=== PATIENT | female | born 1945 | race Two or more races ===

== ENCOUNTER → 2020-05-29 | Outpatient (CLI) | payer OTHER ==
[~2020-05-29] MED LIST: ASPI81CH43
[2020-05-29 12:40] LABS: Basophils # (auto) 0.1 10 ^3/uL (0-0.2); Basophils % (auto) 1.1 % (0.0-2.0); Eosinophils # (auto) 0.2 10 ^3/uL (0-0.8); Eosinophils % (auto) 3.3 % (0.0-7.0); Hematocrit 38.4 % (36.0-46.0); Hemoglobin 13.2 g/dL (12.2-16.2); Lymphocytes % (auto) 33.6 % (10.0-50.0); Mean Corpuscular Hemoglobin 30.7 pg (28.0-32.0); Mean Corpuscular Hgb Conc. 34.3 g/dL (32.0-36.0); Mean Corpuscular Volume 89.6 fL (80.0-100.0); Monocytes # (auto) 0.6 10 ^3/uL (0-1.3); Monocytes % (auto) 10.2 % (0.0-12.0); Neutrophils # (auto) 3.1 10 ^3/uL (1.6-8.6); Neutrophils % (auto) 51.8 % (37.0-80.0); Platelet Count (auto) 258 10^3/uL (140-450); Red Blood Cells 4.29 10^6/uL (4.0-5.20); Red Cell Distribution Width 14.1 % (11.8-14.3); White Blood Cell 5.9 10^3/uL (4.4-10.8)
[2020-05-29 13:00] LABS: Urine Blood Negative /uL (Negative); Urine Specific Gravity 1.004 (1.001-1.035)
[2020-05-29 13:17] LABS: Albumin 3.7 g/dL (3.4-5.0); Potassium 4.1 mmol/L (3.5-5.1)
[2020-05-29 13:25] LABS: BUN/Creatinine Ratio 19.8; Bilirubin, Total 0.6 mg/dL (0.2-1.0); Calcium 9.3 mg/dL (8.5-10.1); Total Protein 8.2 g/dL (6.4-8.2)
== END | disposition home or self-care (01) ==
LOC: LAB 12:26
PROVIDERS: ATTEND Student in an Organized Health Care Education/Training Program
DX: I10 Essential (primary) hypertension (principal); R73.9 Hyperglycemia, unspecified
CPT/HCPCS: 36415; 80053; 80061; 81003; 83036; 84443; 85025

== ENCOUNTER → 2020-11-27 | Outpatient (CLI) | payer OTHER | END | disposition home or self-care (01) | LOC: LAB 10:43 | PROVIDERS: ATTEND Obstetrics & Gynecology | DX: N83.299 Other ovarian cyst, unspecified side (principal) | CPT/HCPCS: 86304 ==

== ENCOUNTER 2021-01-23 13:39 | Day surgery (SDC) | payer OTHER ==
[2021-01-18 12:27] LABS: Basophils # (auto) 0.1 10 ^3/uL (0-0.2); Basophils % (auto) 0.6 % (0.0-2.0); Eosinophils # (auto) 0.1 10 ^3/uL (0-0.8); Eosinophils % (auto) 1.3 % (0.0-7.0); Hematocrit 43.4 % (36.0-46.0); Hemoglobin 14.5 g/dL (12.2-16.2); Lymphocytes # (auto) 1.7 10 ^3/uL (0.4-5.4); Lymphocytes % (auto) 19.8 % (10.0-50.0); Mean Corpuscular Hemoglobin 29.6 pg (28.0-32.0); Mean Corpuscular Hgb Conc. 33.4 g/dL (32.0-36.0); Mean Corpuscular Volume 88.7 fL (80.0-100.0); Monocytes # (auto) 0.7 10 ^3/uL (0-1.3); Monocytes % (auto) 7.6 % (0.0-12.0); Neutrophils # (auto) 6.2 10 ^3/uL (1.6-8.6); Neutrophils % (auto) 70.7 % (37.0-80.0); Nucleated Red Blood Cells % 0.1 %; White Blood Cell 8.7 10^3/uL (4.4-10.8)
[2021-01-18 13:27] LABS: Albumin 3.6 g/dL (3.4-5.0); Calcium 9.7 mg/dL (8.5-10.1); Potassium 4.2 mmol/L (3.5-5.1)
[2021-01-18 13:30] LABS: Bilirubin, Total 0.4 mg/dL (0.2-1.0); Total Protein 8.5 g/dL (6.4-8.2)
[~2021-01-23] VITALS: Ht 157.5 cm; Wt 72.1 kg
[~2021-01-23 13:39] MED LIST changes: -ASPI81CH43; +LOSA-69 PO
[2021-01-23] MEDS ORDERED: diphenhdrAMINE HCL 50 MG/1 ML VL ONE (14:19)
[2021-01-23] MEDS ORDERED: SODIUM CHLORIDE LOCK 10 ML ONE (14:19)
[2021-01-23] MEDS: fentaNYL CITRATE 100 MCG/2 ML VL ONE ×2 (14:24→14:29)
[2021-01-23] MEDS: MIDAZOLAM HCL 5 MG/ML-1ML VIAL ONE ×2 (14:24→14:29)
[2021-01-23 15:28] VITALS: BP 128/70
== END 2021-01-23 15:50 | disposition home or self-care (01) ==
LOC: GI 13:39
PROVIDERS: ATTEND Internal Medicine Gastroenterology
DX: Z12.11 Encounter for screening for malignant neoplasm of colon (principal); K63.5 Polyp of colon; K64.8 Other hemorrhoids; K63.89 Other specified diseases of intestine; I10 Essential (primary) hypertension; Z98.890 Other specified postprocedural states; Z79.899 Other long term (current) drug therapy
CPT/HCPCS: 36415; 45380; 80053; 85025; 88305; J1200; J2250; J3010; J7030; 99152

== ENCOUNTER → 2021-02-06 | Outpatient (CLI) | payer OTHER | END | disposition home or self-care (01) | LOC: LAB 11:52 | PROVIDERS: ATTEND Obstetrics & Gynecology | DX: N83.201 Unspecified ovarian cyst, right side (principal); R10.2 Pelvic and perineal pain | CPT/HCPCS: 86304 ==

== ENCOUNTER → 2021-08-14 | Outpatient (CLI) | payer OTHER ==
[2021-08-14 12:05] LABS: Basophils # (auto) 0.1 10 ^3/uL (0-0.2); Basophils % (auto) 0.8 % (0.0-2.0); Eosinophils # (auto) 0.2 10 ^3/uL (0-0.8); Eosinophils % (auto) 3.5 % (0.0-7.0); Hematocrit 39.8 % (36.0-46.0); Hemoglobin 13.4 g/dL (12.2-16.2); Lymphocytes # (auto) 1.9 10 ^3/uL (0.4-5.4); Lymphocytes % (auto) 30.4 % (10.0-50.0); Mean Corpuscular Hemoglobin 29.6 pg (28.0-32.0); Mean Corpuscular Hgb Conc. 33.8 g/dL (32.0-36.0); Mean Corpuscular Volume 87.8 fL (80.0-100.0); Monocytes # (auto) 0.5 10 ^3/uL (0-1.3); Monocytes % (auto) 8.4 % (0.0-12.0); Neutrophils # (auto) 3.6 10 ^3/uL (1.6-8.6); Neutrophils % (auto) 56.9 % (37.0-80.0); Nucleated Red Blood Cells % 0.1 %; Red Blood Cells 4.54 10^6/uL (4.0-5.20); Red Cell Distribution Width 14.1 % (11.8-14.3); White Blood Cell 6.3 10^3/uL (4.4-10.8)
[2021-08-14 12:09] LABS: Urine Bacteria NONE SEEN /hpf (None Seen); Urine Blood Negative /uL (Negative); Urine Specific Gravity 1.006 (1.001-1.035); Urine WBC 1 /hpf (0 - 5)
[2021-08-14 17:28] LABS: Potassium 4.1 mmol/L (3.5-5.1)
[2021-08-14 17:29] LABS: BUN/Creatinine Ratio 25.9; Bilirubin, Total 0.5 mg/dL (0.2-1.0); Calcium 9.3 mg/dL (8.5-10.1); Total Protein 7.9 g/dL (6.4-8.2)
[2021-08-14 17:30] LABS: Albumin 3.6 g/dL (3.4-5.0)
== END | disposition home or self-care (01) ==
LOC: LAB 11:38
PROVIDERS: ATTEND Student in an Organized Health Care Education/Training Program
DX: I10 Essential (primary) hypertension (principal); R73.9 Hyperglycemia, unspecified
CPT/HCPCS: 36415; 80053; 80061; 81001; 83036; 85025

== ENCOUNTER → 2023-02-06 | Outpatient (CLI) | payer OTHER ==
[~2023-02-06] MED LIST changes: -LOSA-69 PO; +LOSA50TA46 PO
[2023-02-06 10:21] LABS: Basophils # (auto) 0.1 10 ^3/uL (0-0.2); Basophils % (auto) 1.1 % (0.0-2.0); Eosinophils # (auto) 0.4 10 ^3/uL (0-0.8); Eosinophils % (auto) 4.4 % (0.0-7.0); Hemoglobin 13.1 g/dL (12.2-16.2); Lymphocytes # (auto) 2.2 10 ^3/uL (0.4-5.4); Lymphocytes % (auto) 25.4 % (10.0-50.0); Mean Corpuscular Hemoglobin 29.9 pg (28.0-32.0); Mean Corpuscular Hgb Conc. 33.5 g/dL (32.0-36.0); Monocytes # (auto) 0.7 10 ^3/uL (0-1.3); Monocytes % (auto) 8.6 % (0.0-12.0); Neutrophils # (auto) 5.2 10 ^3/uL (1.6-8.6); Neutrophils % (auto) 60.5 % (37.0-80.0); Nucleated Red Blood Cells % 0.1 %; Red Blood Cells 4.38 10^6/uL (4.0-5.20); Red Cell Distribution Width 14.4 % (11.8-14.3); White Blood Cell 8.6 10^3/uL (4.4-10.8)
[2023-02-06 11:25] LABS: Alanine Aminotransferase 20 U/L (7-40); Albumin 4.4 g/dL (3.2-4.8); Alkaline Phosphatase 106 U/L (46-116); Anion Gap 8 (5-15); Aspartate Aminotransferase 21 U/L (13-40); BUN/Creatinine Ratio 26.8 (10.0-20.0); Bilirubin, Total 0.7 mg/dL (0.2-1.0); Blood Urea Nitrogen 26 mg/dL (9-23); Calcium 9.6 mg/dL (8.5-10.1); Carbon Dioxide 25 mmol/L (20-30); Chloride 103 mmol/L (98-107); Cholesterol 165 mg/dL (< 200); Glucose 101 mg/dL (74-106); HDL Cholesterol 45 mg/dL (40-59); LDL Cholesterol 102 mg/dL (< 100); Potassium 4.1 mmol/L (3.5-5.1); Sodium 136 mmol/L (136-145); Total Protein 7.9 g/dL (5.7-8.2); Triglycerides 144 mg/dL (< 150)
== END | disposition home or self-care (01) ==
LOC: LAB 10:10
PROVIDERS: ATTEND Student in an Organized Health Care Education/Training Program
DX: I10 Essential (primary) hypertension (principal)
CPT/HCPCS: 36415; 80053; 80061; 82306; 83036; 85025

== ENCOUNTER → 2023-11-24 | Outpatient (CLI) | payer OTHER ==
[~2023-11-24] MED LIST changes: +LOSA-534 PO; -LOSA50TA46 PO
[2023-11-24 11:38] LABS: Urine Bacteria None Seen /hpf (None Seen)
[2023-11-24 11:49] LABS: Basophils # (auto) 0.1 10 ^3/uL (0-0.2); Basophils % (auto) 0.8 % (0.0-2.0); Eosinophils # (auto) 0.2 10 ^3/uL (0-0.8); Eosinophils % (auto) 2.6 % (0.0-7.0); Hematocrit 37.2 % (36.0-46.0); Hemoglobin 12.7 g/dL (12.2-16.2); Lymphocytes # (auto) 1.9 10 ^3/uL (0.4-5.4); Lymphocytes % (auto) 23.8 % (10.0-50.0); Mean Corpuscular Hemoglobin 30.2 pg (28.0-32.0); Mean Corpuscular Hgb Conc. 34.1 g/dL (32.0-36.0); Mean Corpuscular Volume 88.7 fL (80.0-100.0); Monocytes # (auto) 0.7 10 ^3/uL (0-1.3); Monocytes % (auto) 8.4 % (0.0-12.0); Neutrophils # (auto) 5.2 10 ^3/uL (1.6-8.6); Neutrophils % (auto) 64.4 % (37.0-80.0); Nucleated Red Blood Cells % 0.1 %; Red Blood Cells 4.19 10^6/uL (4.0-5.20); Red Cell Distribution Width 14.4 % (11.8-14.3); White Blood Cell 8.1 10^3/uL (4.4-10.8)
[2023-11-24 11:56] LABS: Urine Blood Negative /uL (Negative); Urine Clarity Clear (Clear); Urine Color Light-Yellow (Yellow); Urine Protein, UAD Negative (Negative); Urine Urobilinogen Normal (Negative); Urine WBC 1 /hpf (0 - 5); Urine pH 6.5 (5.0-9.0)
[2023-11-24 12:19] LABS: LDL Cholesterol 83 mg/dL (< 100); Triglycerides 163 mg/dL (< 150)
[2023-11-24 12:20] LABS: HDL Cholesterol 39 mg/dL (40-59)
[2023-11-24 12:21] LABS: Cholesterol 150 mg/dL (< 200)
== END | disposition home or self-care (01) ==
LOC: LAB 11:29
PROVIDERS: ATTEND Student in an Organized Health Care Education/Training Program
DX: I10 Essential (primary) hypertension (principal); E78.5 Hyperlipidemia, unspecified; E55.9 Vitamin D deficiency, unspecified
CPT/HCPCS: 36415; 80061; 81001; 82306; 84443; 85025

== ENCOUNTER → 2024-05-30 | Outpatient (CLI) | payer OTHER ==
[2024-05-30 12:37] LABS: Urine Bacteria None Seen /hpf (None Seen)
[2024-05-30 12:45] LABS: Basophils # (auto) 0.1 10 ^3/uL (0-0.2); Basophils % (auto) 0.8 % (0.0-2.0); Eosinophils # (auto) 0.2 10 ^3/uL (0-0.8); Eosinophils % (auto) 3.5 % (0.0-7.0); Hemoglobin 13.8 g/dL (12.2-16.2); Lymphocytes # (auto) 1.8 10 ^3/uL (0.4-5.4); Lymphocytes % (auto) 27.5 % (10.0-50.0); Mean Corpuscular Hemoglobin 29.4 pg (28.0-32.0); Mean Corpuscular Hgb Conc. 32.8 g/dL (32.0-36.0); Mean Corpuscular Volume 89.7 fL (80.0-100.0); Monocytes # (auto) 0.6 10 ^3/uL (0-1.3); Monocytes % (auto) 8.9 % (0.0-12.0); Neutrophils # (auto) 3.8 10 ^3/uL (1.6-8.6); Neutrophils % (auto) 59.3 % (37.0-80.0); Platelet Count (auto) 256 10^3/uL (140-450); Red Blood Cells 4.68 10^6/uL (4.0-5.20); Red Cell Distribution Width 14.5 % (11.8-14.3); White Blood Cell 6.4 10^3/uL (4.4-10.8)
[2024-05-30 13:37] LABS: Urine Blood TRACE /uL (Negative); Urine Clarity Clear (Clear); Urine Protein, UAD Negative (Negative); Urine Specific Gravity 1.006 (1.001-1.035); Urine Squamous Epithelial Cell FEW /hpf (<5); Urine Urobilinogen Normal (Negative); Urine WBC 1 /HPF (0-5); Urine pH 6.5 (5.0-9.0)
[2024-05-30 13:38] LABS: Urine Color Light-Yellow (Yellow)
[2024-05-30 14:09] LABS: Alanine Aminotransferase 20 U/L (7-40); Albumin 4.7 g/dL (3.2-4.8); Anion Gap 7 (5-15); Aspartate Aminotransferase 23 U/L (13-40); BUN/Creatinine Ratio 21.3 (10.0-20.0); Blood Urea Nitrogen 19 mg/dL (9-23); Carbon Dioxide 28 mmol/L (20-31); Chloride 104 mmol/L (98-107); Glucose 103 mg/dL (74-106); LDL Cholesterol 86 mg/dL (< 100); Potassium 4.4 mmol/L (3.5-5.1); Sodium 139 mmol/L (136-145)
[2024-05-30 14:10] LABS: Bilirubin, Total 0.5 mg/dL (0.2-1.0); Cholesterol 157 mg/dL (< 200); HDL Cholesterol 48 mg/dL (40-59); Total Protein 7.8 g/dL (5.7-8.2)
[2024-05-30 14:12] LABS: Alkaline Phosphatase 130 U/L (46-116); Calcium 10.5 mg/dL (8.7-10.4); Triglycerides 226 mg/dL (< 150)
== END | disposition home or self-care (01) ==
LOC: LAB 12:17
PROVIDERS: ATTEND Student in an Organized Health Care Education/Training Program
DX: I10 Essential (primary) hypertension (principal); E55.9 Vitamin D deficiency, unspecified; R73.9 Hyperglycemia, unspecified
CPT/HCPCS: 36415; 80053; 80061; 81001; 82306; 83036; 84443; 85025

== ENCOUNTER → 2024-08-03 | Outpatient (CLI) | payer OTHER | END | disposition home or self-care (01) | LOC: LAB 11:40 | PROVIDERS: ATTEND Registered Nurse | DX: N39.0 Urinary tract infection, site not specified (principal); R31.9 Hematuria, unspecified | CPT/HCPCS: 87086 ==

== ENCOUNTER 2024-08-14 13:22 | Inpatient (IN) | payer OTHER ==
[~2024-08-14] VITALS: Ht 157.5 cm; Wt 69.1 kg
[~2024-08-14 13:22] MED LIST changes: +EZET-10 PO; +ROSU5TAB24 PO; +ZOFR4T SL
--- NOTE | 2024-08-14 14:05 | ED.PDOC ---
GI ASSESSMENT HPI Comments 78 y.o female with PMHx of HTN, presents to the ED for a chief complaint of lower abdominal pain associated with nausea, vomiting, dysuria and chills that started 10 days ago. Patient reports pain is sharp, constant, non radiating and rating a 8/10 on the pain scale. Patient reports being seen at an ED when pain first presented, states she was diagnosed with gastroenteritis and given pain medication. Patient finished pain medication 4 days ago, mentions they helped with pain but since running out, pain has came back. She denies any diarrhea, fever, bloody stool, back pain. Chief Complaint: Abdominal Pain Time Seen by MD: 13:48 Primary Care Provider: OUT OF AREA Reviewed Notes: Nurses Notes, Medications, Allergies Allergies: Coded Allergies: Pork Allergy (Unverified Allergy, Mild, rash, 01/18/21) Home Meds Reported Medications Losartan Potassium (Losartan Potassium) 50 Mg Tab, 50 MG PO, TAB 01/18/21 Information Source: Patient Mode of Arrival: Ambulatory Timing: Days (10) Duration: Since onset Quality: Sharp Vomitus: Hard Stool: Normal Severity: Moderate Recent: None Recent Hx of: Other Pain Location: Suprapubic Modifying Factors: Nothing Associated sign and symptoms: Nausea, Vomiting, Abdominal Pain Past Medical History PAST MEDICAL HISTORY: GERD, HTN 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 History Family History Family History: Reviewed,noncontributory to illness Social History Smoker: Non-Smoker Alcohol: Denies ETOH Use Drugs: Denies Drug Use Lives In: Home Constitutional: reports: chills; denies: diaphoresis, fatigue, fever, malaise, sweats, weakness, others EENTM: denies: blurred vision, double vision, ear bleeding, ear discharge, ear drainage, ear pain, ear ringing, eye pain, eye redness, hearing loss, mouth pain, mouth swelling, nasal discharge, nose bleeding, nose congestion, nose pain, photophobia, tearing, throat pain, throat swelling, voice changes, others Respiratory: denies: cough, hemoptysis, orthopnea, SOB at rest, shortness of breath, SOB with excertion, stridor, wheezing, others Cardiovascular: denies: chest pain, dizzy spells, diaphoresis, Dyspnea on exertion, edema, irregular heart beat, left arm pain, lightheadedness, palpitations, PND, syncope, others Gastrointestinal: reports: abdominal pain, nausea, vomiting; denies: abdomen distended, blood streaked bowels, constipated, diarrhea, dysphagia, difficulty swallowing, hematemesis, melena, poor appetite, poor fluid intake, rectal bleeding, rectal pain, others Genitourinary: denies: abnormal vagina bleeding, burning, dyspareunia, dysuria, flank pain, frequency, hematuria, incontinence, pain, , vagina discharge, urgency, others Neurological: denies: dizziness, fainting, headache, left sided numbness, left sided weakness, numbness, paresthesia, pre-existing deficit, right sided numbness, right sided weakness, seizure, speech problems, tingling, tremors, weakness, others Musculoskeletal: denies: back pain, gout, joint pain, joint swelling, muscle pain, muscle stiffness, neck pain, others Integumetry: denies: bruises, change in color, change in hair/nails, dryness, laceration, lesions, lumps, rash, wounds, others Allergic/Immunocompromised: denies: Difficulty Healing, Frequent Infections, Hives, Itching, others Hematologic/Lymphatic: denies: anemia, blood clots, easy bleeding, easy bruising, swollen glands, others Endocrine: denies: excessive hunger, excessive sweating, excessive thirst, excessive urination, flushing, intolerance to cold, intolerance to heat, unexplained weight gain, unexplained weight loss, others Psychiatric: denies: anxiety, bipolar disorder, depression, hopeless, panic disorder, schizophrenia, sleepless, suicidal, others All Other Systems: Reviewed and Negative Physical Exam General Appearance: Mild Distress HEENT: Normal ENT Inspection, Pharynx Normal, TMs Normal Neck: Full Range of Motion, Non-Tender, Normal, Normal Inspection Respiratory: Chest Non-Tender, Lungs Clear, No Accessory Muscle Use, No Respiratory Distress, Normal Breath Sounds Cardiovascular: No Edema, No JVD, No Murmur, No Gallop, Normal Peripheral Pulses, Regular Rate/Rhythm Breast Exam: Deferred Gastrointestinal: No Organomegaly, No Pulsatile Mass, Normal Bowel Sounds, Soft, Suprapubic, Tenderness Genitalia: Deferred Pelvic: Deferred Rectal: Deferred Extremities: No calf tenderness, Normal capillary refill, Normal inspection, Normal range of motion, Non-tender, No pedal edema Musculoskeletal : Apperance: Normal Neurologic: Alert, 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 Was a procedure done?: No GI differential Dx Differential Diagnosis: Esophagitis, Gastroenteritis, Inflammatory BD, Diabetes/ DKA, Electrolyte Imbalance, Food Poisoning, Viral X-Ray, Labs, Meds, VS Vital Signs Date Time Temp Pulse Resp B/P (MAP) Pulse Ox O2 Delivery O2 Flow Rate FiO2 08/14/24 14:52 65 17 114/60 08/14/24 14:42 Room Air* 0 21 08/14/24 14:28 100.1 86 17 124/57 (79) 95 100.1 08/14/24 14:22 86 17 124/57 08/14/24 13:34 100.7 91 15 165/59 (94) 96 100.7 Lab Test 08/14/24 14:00 08/14/24 13:56 Range/Units White Blood Count 13.9 H 4.4-10.8 10^3/uL Red Blood Count 4.34 4.0-5.20 10^6/uL Hemoglobin 12.7 12.2-16.2 g/dL Hematocrit 37.8 36.0-46.0 % Mean Corpuscular Volume 87.2 80.0-100.0 fL Mean Corpuscular Hemoglobin 29.4 28.0-32.0 pg Mean Corpuscular Hemoglobin Concent 33.7 32.0-36.0 g/dL Red Cell Distribution Width 14.1 11.8-14.3 % Platelet Count 276 140-450 10^3/uL Mean Platelet Volume 7.3 6.9-10.8 fL Neutrophils (%) (Auto) 84.8 H 37.0-80.0 % Lymphocytes (%) (Auto) 4.4 L 10.0-50.0 % Monocytes (%) (Auto) 10.4 0.0-12.0 % Eosinophils (%) (Auto) 0.1 0.0-7.0 % Basophils (%) (Auto) 0.3 0.0-2.0 % Neutrophils # (Auto) 11.8 H 1.6-8.6 10 ^3/uL Lymphocytes # (Auto) 0.6 0.4-5.4 10 ^3/uL Monocytes # (Auto) 1.5 H 0-1.3 10 ^3/uL Eosinophils # (Auto) 0 0-0.8 10 ^3/uL Basophils # (Auto) 0 0-0.2 10 ^3/uL Nucleated Red Blood Cells 0.0 % Sodium Level 133 L 136-145 mmol/L Potassium Level 4.2 3.5-5.1 mmol/L Chloride Level 100 98-107 mmol/L Carbon Dioxide Level 24 20-31 mmol/L Anion Gap 9 5-15 Blood Urea Nitrogen 21 9-23 mg/dL Creatinine 1.15 H 0.550-1.02 mg/dL Glomerular Filtration Rate Calc 49 >90 mL/min BUN/Creatinine Ratio 18.3 10.0-20.0 Serum Glucose 166 H 74-106 mg/dL Calcium Level 9.6 8.7-10.4 mg/dL Total Bilirubin 0.8 0.2-1.0 mg/dL Aspartate Amino Transferase (AST) 21 13-40 U/L Alanine Aminotransferase (ALT) 21 7-40 U/L Alkaline Phosphatase 114 46-116 U/L Total Protein 7.8 5.7-8.2 g/dL Albumin 4.3 3.2-4.8 g/dL Urine Color Light-yellow Yellow Urine Clarity Turbid H Clear Urine pH 8.0 5.0-9.0 Urine Specific [place] 1.012 1.001-1.035 Urine Protein 1+ H Negative Urine Ketones Negative Negative Urine Blood Trace H Negative /uL Urine Nitrite Negative Negative Urine Bilirubin Negative Negative Urine Urobilinogen Normal Negative mg/dL Urine Leukocyte Esterase 3+ Negative /uL Urine RBC 13 0 - 4 /hpf Urine Microscopic WBC 113 H 0-5 /HPF Urine Squamous Epithelial Cells Few <5 /hpf Urine Transitional Epithelial Cells Few <2 /hpf Urine Bacteria Few H None Seen /hpf Urine Yeast (Budding) Few None Seen /hpf Urine Glucose Normal Normal mg/dL Current Medications Medications (Trade) Dose Ordered Sig/Tony Route Start Time Stop Time Status Last Admin Ondansetron HCl (Zofran) 4 mg ONCE ONCE IV 08/14/24 14:00 08/14/24 14:01 DC 08/14/24 14:21 Morphine Sulfate 4 mg ONCE ONCE IV 08/14/24 14:00 08/14/24 14:01 DC 08/14/24 14:22 Sodium Chloride 500 ml @ 500 mls/hr Q1H ONCE IVB 08/14/24 14:00 08/14/24 14:59 DC 08/14/24 14:31 Levofloxacin/ Dextrose 100 ml @ 100 mls/hr ONCE ONCE IV 08/14/24 15:45 08/14/24 16:44 08/14/24 16:04 CLINICAL INFORMATION: 78 years old, Female; pain. TECHNIQUE: Axial CT images of the abdomen and pelvis were obtained without IV contrast. Coronal and sagittal reformatted images were obtained, reviewed, and stored. Evaluation of the parenchymal organs is limited without IV contrast. Evaluation of the bowel and mesentery is limited without oral contrast. All CT scans at this medical facility are performed using dose modulation techniques as appropriate to a performed exam including the following: Automated exposure control was utilized; adjustment of the MA and/or KV according to patient size; and use of iterative reconstruction technique. IMPRESSION: 1. Nonspecific nondilated fluid-filled small bowel loops. Findings may be seen with ileus or enteritis in the appropriate clinical setting. No small bowel obstruction. 2. Mild bilateral perinephric stranding is nonspecific may be chronic. Correlate with clinical findings and urinalysis to exclude infectious / inflammatory etiology. No hydronephrosis and no renal or ureteral calculi. 3. Additional findings as described above At this time, an IV Hep-Lock was established The patient was started on Levaquin IV piggyback after the urine reveals a significant UTI The patient was given morphine 4 mg IV push for the pain The patient was given Zofran 4 mg IV push for the nausea At this time the CBC shows an elevated white blood cell count The patient was being admitted at this time Images Reviewed?: Images reviewed and evaluated by me Time of 1ST Reevaluation: 14:00 Reevaluation 1ST: Unchanged Patient Education/Counseling: Diagnosis, Treatment, Prognosis Family Education/Counseling: Diagnosis, Treatment, Prognosis Departure 1 Departure Time of Disposition: 16:30 Impression: Primary Impression: Urinary tract infection Qualified Codes: N30.00 - Acute cystitis without hematuria Additional Impressions: Intractable abdominal pain Enteritis Disposition: ADMITTED INPATIENT Admit to: Med Surg Condition: Fair Critical Care Note Critical Care Time?: No Stability Stability form required: Yes Unstable for transfer: ED Physician Assesment (Clinical assesment) I personally scribed for CIARA,AKIRA B MD (DVPASLE) on 08/14/24 at 14:05. Electronically submitted by Joanna Hill ([facility]). I personally scribed for AKIRA URBINA MD (DVPASLE) on 08/14/24 at 16:26. Electronically submitted by Joanna Hill ([facility]). AKIRA URBINA MD Aug 14, 2024 14:05
[2024-08-14 14:07] LABS: Basophils # (auto) 0 10 ^3/uL (0-0.2); Basophils % (auto) 0.3 % (0.0-2.0); Eosinophils # (auto) 0 10 ^3/uL (0-0.8); Eosinophils % (auto) 0.1 % (0.0-7.0); Hematocrit 37.8 % (36.0-46.0); Hemoglobin 12.7 g/dL (12.2-16.2); Lymphocytes # (auto) 0.6 10 ^3/uL (0.4-5.4); Lymphocytes % (auto) 4.4 % (10.0-50.0); Mean Corpuscular Hemoglobin 29.4 pg (28.0-32.0); Mean Corpuscular Hgb Conc. 33.7 g/dL (32.0-36.0); Mean Corpuscular Volume 87.2 fL (80.0-100.0); Monocytes # (auto) 1.5 10 ^3/uL (0-1.3); Monocytes % (auto) 10.4 % (0.0-12.0); Neutrophils # (auto) 11.8 10 ^3/uL (1.6-8.6); Neutrophils % (auto) 84.8 % (37.0-80.0); Platelet Count (auto) 276 10^3/uL (140-450); Red Blood Cells 4.34 10^6/uL (4.0-5.20); Red Cell Distribution Width 14.1 % (11.8-14.3); White Blood Cell 13.9 10^3/uL (4.4-10.8)
[2024-08-14 14:13] LABS: Urine Bacteria FEW /hpf (None Seen); Urine Blood TRACE /uL (Negative); Urine Budding Yeast FEW /hpf (None Seen); Urine Clarity Turbid (Clear); Urine Color Light-Yellow (Yellow); Urine Protein, UAD 1+ (Negative); Urine Specific Gravity 1.012 (1.001-1.035); Urine Squamous Epithelial Cell FEW /hpf (<5); Urine Urobilinogen Normal (Negative); Urine WBC 113 /HPF (0-5)
[2024-08-14 14:21] LABS: Alanine Aminotransferase 21 U/L (7-40); Alkaline Phosphatase 114 U/L (46-116); Anion Gap 9 (5-15); BUN/Creatinine Ratio 18.3 (10.0-20.0); Blood Urea Nitrogen 21 mg/dL (9-23); Calcium 9.6 mg/dL (8.7-10.4); Carbon Dioxide 24 mmol/L (20-31); Chloride 100 mmol/L (98-107); Potassium 4.2 mmol/L (3.5-5.1); Total Protein 7.8 g/dL (5.7-8.2)
[2024-08-14] MEDS: ONDANSETRON HCL 4 MG/2 ML VIAL IV ONE (14:21)
[2024-08-14 14:22] LABS: Albumin 4.3 g/dL (3.2-4.8); Aspartate Aminotransferase 21 U/L (13-40); Bilirubin, Total 0.8 mg/dL (0.2-1.0)
[2024-08-14] MEDS: MORPHINE SULFATE 4 MG/ML SYR/VIAL IV ONE (14:22)
[2024-08-14 14:31] LABS: Glucose 166 mg/dL (74-106); Sodium 133 mmol/L (136-145)
[2024-08-14] MEDS: SODIUM CHLORIDE 0.9% 500 ML IVB ONE (14:31)
[2024-08-14] MEDS: levoFLOXacin 500MG 100 ML IV ONE (16:04)
--- NOTE | 2024-08-14 16:24 | DVH ---
CLINICAL INFORMATION: 78 years old, Female; pain. TECHNIQUE: Axial CT images of the abdomen and pelvis were obtained without IV contrast. Coronal and s agittal reformatted images were obtained, reviewed, and stored. Evaluation of the parenchymal organs is limited without IV contrast. Evaluation of the bowel and mesentery is limited without oral contras t. All CT scans at this medical facility are performed using dose modulation techniques as appropriat e to a performed exam including the following: Automated exposure control was utilized; adjustment of the MA and/or KV according to patient size; and use of iterative reconstruction technique. CTDIvol = 9.25 mGy DLP = 476.76 mGy-cm COMPARISON: None FINDINGS: Lung bases: Atelectasis in the lung bases. Liver: Grossly unremarkable in its noncontrast enhanced appearance. No abnormal density or focal lesi on identified. Biliary: No calcified gallstones or biliary ductal dilatation. Spleen: Unremarkable. Pancreas: Grossly unremarkable in its noncontrast enhanced appearance. Adrenal glands: Unremarkable. No mass. Kidneys: Mild bilateral perinephric stranding. No hydronephrosis. No renal or ureteral calculi Aorta/Vascular: Scattered moderate atherosclerotic calcification. No abdominal aortic aneurysm. Retroperitoneum: No mass or lymphadenopathy. Bowel/mesentery: Nonspecific nondilated fluid-filled small bowel loops. No small bowel obstruction. A ppendix is visualized and appears unremarkable. Pelvic organs: Grossly unremarkable. Bladder: Unremarkable. No mass. Abdominal wall: No mass or hernia. Bones: No acute fracture or suspicious intraosseous lesion. IMPRESSION: 1. Nonspecific nondilated fluid-filled small bowel loops. Findings may be seen with ileus or enteriti s in the appropriate clinical setting. No small bowel obstruction. 2. Mild bilateral perinephric stranding is nonspecific may be chronic. Correlate with clinical findin gs and urinalysis to exclude infectious / inflammatory etiology. No hydronephrosis and no renal or ur eteral calculi. 3. Additional findings as described above
--- NOTE | 2024-08-14 16:48 | DVHHP2 ---
Admitting Diagnosis: Lower abdominal pain History of Present Illness 78 y.o female with PMHx of HTN, presents to the ED for a chief complaint of lower abdominal pain associated with nausea, vomiting, dysuria and chills that started 10 days ago. Patient reports pain is sharp, constant, non radiating and rating a 8/10 on the pain scale. Patient reports being seen at an ED when pain first presented, states she was diagnosed with gastroenteritis and given pain medication. Patient finished pain medication 4 days ago, mentions they helped with pain but since running out, pain has came back. She denies any diarrhea, fever, bloody stool, back pain. 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 History Family History Family History: Reviewed,noncontributory to illness Social History Smoker: Non-Smoker Alcohol: Denies ETOH Use Drugs: Denies Drug Use Lives In: Home Allergies: Coded Allergies: Pork Allergy (Unverified Allergy, Mild, rash, 01/18/21) Home Meds Reported Medications Losartan Potassium (Losartan Potassium) 50 Mg Tab, 50 MG PO, TAB 01/18/21 Vital Signs Vital Signs Date Time Temp Pulse Resp B/P (MAP) Pulse Ox O2 Delivery O2 Flow Rate FiO2 08/14/24 16:30 66 12 137/53 (81) 97 08/14/24 14:42 Room Air* 0 21 08/14/24 14:28 100.1 100.1 Physical Exam Generally 78 years old woman, well nourished well developed. Moderate distress HEENT-atraumatic, normocephalic Heart-regular rate and rhythm Lungs auscultate bilaterally Abdomen soft, tender to palpate suprapubic, nondistended Musculoskeletal-no edema cyanosis Neuro-AO x3, no focal deficits Results Labs Test 08/14/24 14:00 08/14/24 13:56 Range/Units White Blood Count 13.9 H 4.4-10.8 10^3/uL Red Blood Count 4.34 4.0-5.20 10^6/uL Hemoglobin 12.7 12.2-16.2 g/dL Hematocrit 37.8 36.0-46.0 % Mean Corpuscular Volume 87.2 80.0-100.0 fL Mean Corpuscular Hemoglobin 29.4 28.0-32.0 pg Mean Corpuscular Hemoglobin Concent 33.7 32.0-36.0 g/dL Red Cell Distribution Width 14.1 11.8-14.3 % Platelet Count 276 140-450 10^3/uL Mean Platelet Volume 7.3 6.9-10.8 fL Neutrophils (%) (Auto) 84.8 H 37.0-80.0 % Lymphocytes (%) (Auto) 4.4 L 10.0-50.0 % Monocytes (%) (Auto) 10.4 0.0-12.0 % Eosinophils (%) (Auto) 0.1 0.0-7.0 % Basophils (%) (Auto) 0.3 0.0-2.0 % Neutrophils # (Auto) 11.8 H 1.6-8.6 10 ^3/uL Lymphocytes # (Auto) 0.6 0.4-5.4 10 ^3/uL Monocytes # (Auto) 1.5 H 0-1.3 10 ^3/uL Eosinophils # (Auto) 0 0-0.8 10 ^3/uL Basophils # (Auto) 0 0-0.2 10 ^3/uL Nucleated Red Blood Cells 0.0 % Sodium Level 133 L 136-145 mmol/L Potassium Level 4.2 3.5-5.1 mmol/L Chloride Level 100 98-107 mmol/L Carbon Dioxide Level 24 20-31 mmol/L Anion Gap 9 5-15 Blood Urea Nitrogen 21 9-23 mg/dL Creatinine 1.15 H 0.550-1.02 mg/dL Glomerular Filtration Rate Calc 49 >90 mL/min BUN/Creatinine Ratio 18.3 10.0-20.0 Serum Glucose 166 H 74-106 mg/dL Calcium Level 9.6 8.7-10.4 mg/dL Total Bilirubin 0.8 0.2-1.0 mg/dL Aspartate Amino Transferase (AST) 21 13-40 U/L Alanine Aminotransferase (ALT) 21 7-40 U/L Alkaline Phosphatase 114 46-116 U/L Total Protein 7.8 5.7-8.2 g/dL Albumin 4.3 3.2-4.8 g/dL Urine Color Light-yellow Yellow Urine Clarity Turbid H Clear Urine pH 8.0 5.0-9.0 Urine Specific [place] 1.012 1.001-1.035 Urine Protein 1+ H Negative Urine Ketones Negative Negative Urine Blood Trace H Negative /uL Urine Nitrite Negative Negative Urine Bilirubin Negative Negative Urine Urobilinogen Normal Negative mg/dL Urine Leukocyte Esterase 3+ Negative /uL Urine RBC 13 0 - 4 /hpf Urine Microscopic WBC 113 H 0-5 /HPF Urine Squamous Epithelial Cells Few <5 /hpf Urine Transitional Epithelial Cells Few <2 /hpf Urine Bacteria Few H None Seen /hpf Urine Yeast (Budding) Few None Seen /hpf Urine Glucose Normal Normal mg/dL Primary Diagnosis Acute pyelonephritis Plan CT of abdomen pelvis shows likely pyelonephritis with a possible enteritis Ceftriaxone 2 g daily Check blood culture, urine culture IV fluids Pain control Bowel regimen Full code Regular diet Lovenox for DVT prophylaxis No GI prophylaxis Plan discussed with: Patient Problems List: (1) Acute pyelonephritis Status: Acute Date of Service: Aug 14, 2024 Billing Provider: ALBERT DEE MD Common Visit Codes: 11639-NLUBISL INP/OBS CARE (HIGH) ALBERT DEE MD Aug 14, 2024 16:47
[2024-08-14] MEDS ORDERED: DOCUSATE SOD 100 MG CAP PO PRN (17:45)
[2024-08-14] MEDS ORDERED: HYDROmorphone HCL 2 MG/ML VL/or syr IV PRN (17:45)
[2024-08-14] MEDS: LACTATED RINGER'S 1,000 ML IV ONE (18:09)
[2024-08-14] MEDS: ONDANSETRON HCL 4 MG/2 ML VIAL IV PRN (20:06)
[2024-08-14] MEDS: SODIUM CHLOR 0.9% PF (SALINE LOCK) 10ML VIAL/SYR IV SCH (20:07)
[2024-08-14 23:19] VITALS: BP 122/40; PULSE 78; RESP 17; TEMP 98.7; O2SAT 95
[2024-08-15 06:19] LABS: Basophils # (auto) 0 10 ^3/uL (0-0.2); Basophils % (auto) 0.2 % (0.0-2.0); Eosinophils # (auto) 0 10 ^3/uL (0-0.8); Eosinophils % (auto) 0.1 % (0.0-7.0); Hematocrit 32.4 % (36.0-46.0); Hemoglobin 10.9 g/dL (12.2-16.2); Lymphocytes # (auto) 1.1 10 ^3/uL (0.4-5.4); Lymphocytes % (auto) 9.2 % (10.0-50.0); Mean Corpuscular Hemoglobin 29.2 pg (28.0-32.0); Mean Corpuscular Hgb Conc. 33.7 g/dL (32.0-36.0); Mean Corpuscular Volume 86.7 fL (80.0-100.0); Monocytes # (auto) 1.6 10 ^3/uL (0-1.3); Monocytes % (auto) 12.7 % (0.0-12.0); Neutrophils # (auto) 9.7 10 ^3/uL (1.6-8.6); Neutrophils % (auto) 77.8 % (37.0-80.0); Platelet Count (auto) 225 10^3/uL (140-450); Red Blood Cells 3.73 10^6/uL (4.0-5.20); Red Cell Distribution Width 13.9 % (11.8-14.3); White Blood Cell 12.4 10^3/uL (4.4-10.8)
[2024-08-15 06:46] LABS: Alanine Aminotransferase 18 U/L (7-40); Albumin 3.7 g/dL (3.2-4.8); Alkaline Phosphatase 92 U/L (46-116); Anion Gap 9 (5-15); BUN/Creatinine Ratio 17.3 (10.0-20.0); Blood Urea Nitrogen 18 mg/dL (9-23); Calcium 9.3 mg/dL (8.7-10.4); Carbon Dioxide 25 mmol/L (20-31); Chloride 103 mmol/L (98-107); Potassium 4.2 mmol/L (3.5-5.1); Sodium 137 mmol/L (136-145); Total Protein 6.6 g/dL (5.7-8.2)
[2024-08-15 06:47] LABS: Aspartate Aminotransferase 16 U/L (13-40); Bilirubin, Total 0.5 mg/dL (0.2-1.0)
[2024-08-15 06:58] LABS: Glucose 120 mg/dL (74-106)
[2024-08-15] MEDS: cefTRIAXone 2GM/50ML D5W 50 ML IV SCH (10:35)
[2024-08-15] MEDS: ACETAMINOPHEN 325 MG TAB PO PRN (10:57)
--- NOTE | 2024-08-15 15:10 | DVHPNRES ---
Progress Note Date Seen: Aug 15, 2024 Resident Creating Document: ARUNA COOLEY RESIDENT Medical Necessity Reason Pt with a Central, PICC or Fol: No Subjective Review of Systems This is a 78-year-old female with past medical history of hypertension, dyslipidemia, GERD presented to the ED with a chief complaint of bilateral flank pain with nausea, vomiting, dysuria, fever and chills for last 10 days prior to this admission. According to the patient she mentioned 10 days ago she started having abdominal pain went to the urgent care and prescribed pain medications that helped a bit but she ran out of medication that prompted this visit. Patient reports that pain is sharp colicky pain radiates from loin to groin without any aggravating or relieving factors and associated with nausea, vomiting, dizziness, chills and fever. she also mentioned urgency, frequency and dysuria for the same duration. She denies chest pain,shortness of breath, blurred vision, altered bowel habit, hematuria, recent sick contact or any recent traveling Patient was seen and examined on the bedside. She is alert, oriented x3. Mentioned suprapubic pain, fever and dysuria . No other active complaints. Constitutional: Fever, Chills, Sweats, Weakness, Malaise, Other Eyes: No: Pain, Vision change, Conjunctivae inflammation, Eyelid inflammation, Other, Redness ENT: No: Ear pain, Ear discharge, Nose pain, Nose discharge, Nose congestion, Mouth pain, Mouth swelling, Throat pain, Throat swelling, Other Respiratory: Shortness of breath, improving No: Cough, Dry,Wheezing, Hemoptysis, Pleuritic Pain, Sputum, Wheezing, Other Cardiovascular: No: Chest Pain, Palpitations, Orthopnea, Paroxysmal Noc. Dyspnea, Edema, Lt Headedness, Other Gastrointestinal: Nausea, Vomiting, Abdominal Pain, No Diarrhea, Constipation, Melena, Hematochezia, Other Musculoskeletal: No: other, neck pain, shoulder pain, arm pain, back pain, hand pain, leg pain, foot pain Neurological: Lightheadedness, No Weakness, Numbness, Incoordination, Change in speech, Confusion, Seizures Objective vital signs Vital Sign Date Time Temp Pulse Resp B/P (MAP) Pulse Ox O2 Delivery O2 Flow Rate FiO2 08/15/24 12:00 65 16 121/57 (78) 93 08/15/24 10:57 104.0 08/15/24 08:00 Room Air* 0 21 Total Intake and Output 08/14/24 08/14/24 08/15/24 15:00 23:00 07:00 Intake Total 600 ml Balance 600 ml medications Current Medications Medications Dose Ordered Sig/Tony Route Start Time Stop Time Status Last Admin Dose Admin Ceftriaxone Sodium/Dextrose 50 ml @ 50 mls/hr DAILY IV 08/15/24 10:00 08/15/24 10:35 50 MLS/HR Sodium Chloride 10 ml Q8HR IV 08/14/24 22:00 08/15/24 14:20 10 ML Docusate Sodium 100 mg BIDPRN PRN PO 08/14/24 17:45 Acetaminophen 650 mg Q6HP PRN PO 08/14/24 17:45 08/15/24 10:57 650 MG Acetaminophen/ Hydrocodone Bitart 1 tab Q4HP PRN PO 08/14/24 17:45 Hydromorphone HCl 0.5 mg Q4HP PRN IV 08/14/24 17:45 Ondansetron HCl 4 mg Q4HP PRN IV 08/14/24 17:45 08/14/24 20:06 4 MG Losartan Potassium 50 mg DAILY PO 08/16/24 10:00 UNV EZETIMIBE 10 mg DAILY PO 08/16/24 10:00 UNV Examination Physical examination: General Appearance: Alert, Oriented X3, Cooperative, No acute distress HEENT: Atraumatic, PERRLA, EOMI, Mucous membrane moist/pink Respiratory: Clear to auscultation, Normal air movement Cardiovascular: Regular rate, Normal S1, Normal S2, No murmurs, no chest wall tenderness Abdominal: Bilateral CVA tenderness and suprapubic tenderness present, Normal bowel sounds, Soft, No hepatosplenomegaly, No masses Extremities: No clubbing, No cyanosis, No edema, Normal pulses, No tenderness/swelling Skin: No rashes, No breakdown, No significant lesion Neuro: Normal gait, Normal speech, Strength at 5/5 X4 ext, Normal tone, Sensation intact, grossly intact cranial nerves Psych/Mental Status: Mental status NL, Mood NL laboratory and microbiology Laboratory Tests 08/15/24 05:54 Test 08/15/24 05:54 Range/Units Serum Glucose 120 H 74-106 mg/dL Microbiology Date/Time Source Procedure Growth Status 08/14/24 13:56 Voided Urine Urine Culture - Preliminary Resulted Labs and/or images reviewed: Labs reviewed by me, Image(s) reviewed by me Problem List/Assessment/Plan Problem List/Assessment/Plan Assessment and plan: # Acute pyelonephritis # Sepsis with leukocytosis due to above # Acute complicated UTI # Possible JUDITH likely due to vasomotor neuropathy - Nonspecific, nondilated fluid-filled small bowel loops possible ileus or enteritis and mild bilateral perinephric stranding possible infectious/ inflammatory etiology. No hydronephrosis and no renal or ureteral calculi. - U/A was consistent with UTI - IV NS bolus given - IV ceftriaxone 2 g daily - Acetaminophen 650 mg q.6 p.r.n. - Pending urine culture # Hypertensive heart disease - Losartan 50 mg p.o. daily. # Dyslipidemia - ezetimibe 10 mg p.o. daily # PUD prophylaxis - Protonix 40 mg p.o. daily # DVT prophylaxis - Lovenox 40 mg sc daily Goal of care discussed with the patient for 20 minutes; full code Plan discussed with Dr. Carroll Plan discussed with: Patient, Other (RN) My Orders My Orders Orders - ARUNA COOLEY RESIDENT Procedure Category Date Status Time Losartan Tablet [facility] 08/16/24 Logged (Cozaar Tablet) 10:00 Ezetimibe (Zetia) PHA 08/16/24 Logged 10:00 Addendum Addendum Addendum I was physically present for the wilson portions of the service provided to patient by THE RESIDENT. I have reviewed the documentation, discussed the case with resident and agree with the resident's documentation except as noted. Also the patient's clinical case was discussed with the patient's nurse. This medical document was created using an electronic medical record system with computerized dictation system. Although this document has been carefully reviewed, there might still be some phonetic and typographical errors. These areas are purely typographical due to imperfections of the software programs, and do not reflect any compromise in the patient's medical care. Late signature. Date of Service: Aug 15, 2024 Billing Provider: OK CARROLL MD Common Visit Codes: [id number] INP/OBS CARE(HIGH) Secondary Visit Codes: [id number] CARE PLAN 30 MINUTES (20 minutes) ARUNA COOLEY RESIDENT Aug 15, 2024 15:10 OK CARROLL MD Aug 17, 2024 05:57
--- NOTE | 2024-08-15 15:47 | DVH ---
CHEST RADIOGRAPH Indication: hypoxia Technique: Single frontal view of the chest was obtained Comparison: None FINDINGS: Lines and Tubes: None Lungs: No focal consolidation. Pleura: No effusion. No pneumothorax. Cardiomediastinal contours: Unremarkable Bones: No acute osseous abnormality. IMPRESSION: 1. No acute cardiopulmonary disease.
[2024-08-15] MEDS: SODIUM CHLORIDE 0.9% 1,000 ML IV ONE (16:13)
[2024-08-15 17:00] VITALS: BP 142/52; PULSE 60; RESP 16; TEMP 98.2; O2SAT 94
[2024-08-15 20:00] VITALS: PULSE 72; RESP 19; O2SAT 94
[2024-08-15] MEDS: HYDROcodone-ACET 5/325MG TAB PO PRN (20:07)
[2024-08-15 20:43] VITALS: PULSE 72; RESP 18; O2SAT 94
[2024-08-15 21:00] VITALS: BP 110/46; PULSE 72; RESP 18; TEMP 101.9; O2SAT 94
[2024-08-16] VITALS (9 sets, daily range): BP systolic 95–143; BP diastolic 40–58; PULSE 54–74; RESP 16–20; TEMP 98.2–99.4; O2SAT 94–98
[2024-08-16] MEDS: PANTOPRAZOLE 40 MG TAB PO SCH (05:51)
[2024-08-16] MEDS: LOSARTAN POTASSIUM 50 MG TAB PO SCH (06:30)
[2024-08-16] MEDS: ERGOCALCIFEROL 50,000 UNIT(1.25MG) CAP PO SCH (06:36)
[2024-08-16 08:16] LABS: Basophils # (auto) 0 10 ^3/uL (0-0.2); Basophils % (auto) 0.2 % (0.0-2.0); Eosinophils # (auto) 0.1 10 ^3/uL (0-0.8); Eosinophils % (auto) 0.8 % (0.0-7.0); Hematocrit 34.4 % (36.0-46.0); Hemoglobin 11.8 g/dL (12.2-16.2); Lymphocytes # (auto) 0.8 10 ^3/uL (0.4-5.4); Lymphocytes % (auto) 8.3 % (10.0-50.0); Mean Corpuscular Hemoglobin 29.8 pg (28.0-32.0); Mean Corpuscular Hgb Conc. 34.3 g/dL (32.0-36.0); Mean Corpuscular Volume 86.9 fL (80.0-100.0); Monocytes # (auto) 1.2 10 ^3/uL (0-1.3); Monocytes % (auto) 12.4 % (0.0-12.0); Neutrophils # (auto) 7.8 10 ^3/uL (1.6-8.6); Neutrophils % (auto) 78.3 % (37.0-80.0); Nucleated Red Blood Cells % 0.1 %; Platelet Count (auto) 229 10^3/uL (140-450); Red Blood Cells 3.96 10^6/uL (4.0-5.20); Red Cell Distribution Width 13.8 % (11.8-14.3)
[2024-08-16 08:46] LABS: Alanine Aminotransferase 21 U/L (7-40); Albumin 3.6 g/dL (3.2-4.8); Alkaline Phosphatase 95 U/L (46-116); Anion Gap 8 (5-15); Aspartate Aminotransferase 24 U/L (13-40); BUN/Creatinine Ratio 18.9 (10.0-20.0); Blood Urea Nitrogen 17 mg/dL (9-23); Calcium 9.4 mg/dL (8.7-10.4); Carbon Dioxide 25 mmol/L (20-31); Chloride 101 mmol/L (98-107); Glucose 106 mg/dL (74-106); Potassium 4.2 mmol/L (3.5-5.1); Total Protein 6.6 g/dL (5.7-8.2)
[2024-08-16 08:47] LABS: Bilirubin, Total 0.4 mg/dL (0.2-1.0)
[2024-08-16 08:55] LABS: Sodium 134 mmol/L (136-145)
[2024-08-16] MEDS: EZETIMIBE 10 MG TAB PO SCH (09:25)
[2024-08-16] MEDS ORDERED: ENOXAPARIN SOD 40 MG/0.4 ML SYRINGE SC SCH (10:00)
[2024-08-16] MEDS ORDERED: LOSARTAN POTASSIUM 50 MG TAB PO SCH (10:00)
[2024-08-16] MEDS: PANTOPRAZOLE 40 MG TAB PO ONE (12:30)
--- NOTE | 2024-08-16 15:38 | DVHPNRES ---
Progress Note Date Seen: Aug 16, 2024 Resident Creating Document: ARUNA COOLEY RESIDENT Medical Necessity Reason Pt with a Central, PICC or Fol: No Subjective Review of Systems Patient was seen and examined on the bedside. She is alert, oriented x3. Mentioned feeling better, complaint of dysuria and mild abdominal pain in the suprapubic region. No other active complaint Objective vital signs Vital Sign Date Time Temp Pulse Resp B/P (MAP) Pulse Ox O2 Delivery O2 Flow Rate FiO2 08/16/24 13:00 98.8 64 16 111/55 (73) 95 98.8 08/15/24 20:43 Room Air* 0 21 Total Intake and Output 08/15/24 08/15/24 08/16/24 15:00 23:00 07:00 Intake Total 50 ml 0 ml 233 ml Output Total 0 ml Balance 50 ml 0 ml 233 ml medications Current Medications Medications Dose Ordered Sig/Tony Route Start Time Stop Time Status Last Admin Dose Admin Ceftriaxone Sodium/Dextrose 50 ml @ 50 mls/hr DAILY IV 08/15/24 10:00 08/16/24 09:24 50 MLS/HR Sodium Chloride 10 ml Q8HR IV 08/14/24 22:00 08/16/24 14:00 10 ML Docusate Sodium 100 mg BIDPRN PRN PO 08/14/24 17:45 Acetaminophen 650 mg Q6HP PRN PO 08/14/24 17:45 08/15/24 21:53 650 MG Acetaminophen/ Hydrocodone Bitart 1 tab Q4HP PRN PO 08/14/24 17:45 08/15/24 20:07 1 TAB Hydromorphone HCl 0.5 mg Q4HP PRN IV 08/14/24 17:45 Ondansetron HCl 4 mg Q4HP PRN IV 08/14/24 17:45 08/14/24 20:06 4 MG EZETIMIBE 10 mg DAILY PO 08/16/24 10:00 08/16/24 09:25 10 MG Pantoprazole Sodium 40 mg DAILY@0600 PO 08/16/24 06:00 08/16/24 05:51 40 MG Enoxaparin Sodium 40 mg DAILY SC 08/16/24 10:00 Hold Losartan Potassium 25 mg DAILY PO 08/16/24 06:30 08/16/24 09:25 25 MG Ergocalciferol 50,000 unit Q7D PO 08/16/24 06:30 08/16/24 06:36 50,000 UNIT Examination Physical examination: General Appearance: Alert, Oriented X3, Cooperative, No acute distress HEENT: Atraumatic, PERRLA, EOMI, Mucous membrane moist/pink Respiratory: Clear to auscultation, Normal air movement Cardiovascular: Regular rate, Normal S1, Normal S2, No murmurs, no chest wall tenderness Abdominal: Bilateral CVA tenderness and suprapubic tenderness present, Normal bowel sounds, Soft, No hepatosplenomegaly, No masses Extremities: No clubbing, No cyanosis, No edema, Normal pulses, No tenderness/swelling Skin: No rashes, No breakdown, No significant lesion Neuro: Normal gait, Normal speech, Strength at 5/5 X4 ext, Normal tone, Sensation intact, grossly intact cranial nerves Psych/Mental Status: Mental status NL, Mood NL laboratory and microbiology Laboratory Tests 08/16/24 07:44 Test 08/16/24 07:44 Range/Units Serum Glucose 106 74-106 mg/dL Microbiology Date/Time Source Procedure Growth Status 08/14/24 13:56 Voided Urine Urine Culture - Preliminary Resulted Labs and/or images reviewed: Labs reviewed by me, Image(s) reviewed by me Problem List/Assessment/Plan Problem List/Assessment/Plan Assessment and plan: # Acute pyelonephritis # Sepsis with leukocytosis due to above # Acute complicated UTI # Possible JUDITH likely due to vasomotor neuropathy - Nonspecific, nondilated fluid-filled small bowel loops possible ileus or enteritis and mild bilateral perinephric stranding possible infectious/ inflammatory etiology. No hydronephrosis and no renal or ureteral calculi. - U/A was consistent with UTI - IV NS bolus given - IV ceftriaxone 2 g daily - Acetaminophen 650 mg q.6 p.r.n. - Pending urine culture # Hypertensive heart disease - Losartan 50 mg p.o. daily. # Dyslipidemia - ezetimibe 10 mg p.o. daily # PUD prophylaxis - Protonix 40 mg p.o. daily # DVT prophylaxis - Lovenox 40 mg sc daily Plan discussed with Dr. Carroll Plan discussed with: Patient, Other (RN) My Orders My Orders Orders - ARUNA COOLEY Procedure Category Date Status Time Losartan Tablet PHA 4/29/25 In Process (Cozaar Tablet) 06:30 Ergocalciferol PHA 08/16/24 In Process (Vitamin D 50,000 06:30 Blood Culture STACEY 08/16/24 Uncollected 07:47 Addendum Addendum Addendum I was physically present for the wilson portions of the service provided to patient by THE RESIDENT. I have reviewed the documentation, discussed the case with resident and agree with the resident's documentation except as noted. Also the patient's clinical case was discussed with the patient's nurse. This medical document was created using an electronic medical record system with computerized dictation system. Although this document has been carefully reviewed, there might still be some phonetic and typographical errors. These areas are purely typographical due to imperfections of the software programs, and do not reflect any compromise in the patient's medical care. Late signature. Date of Service: Aug 16, 2024 Billing Provider: OK CARROLL MD Common Visit Codes: 09551-VIMGELIVNT INP/OBS CARE(HIGH) ARUNA COOLEY RESIDENT Aug 16, 2024 15:38 OK CARROLL MD Aug 17, 2024 05:59
[2024-08-17 01:00] VITALS: BP 132/70; PULSE 58; RESP 20; TEMP 98.1; O2SAT 99
[2024-08-17 05:00] VITALS: BP 130/61; PULSE 55; RESP 20; TEMP 98.1; O2SAT 96
[2024-08-17 07:28] LABS: Basophils # (auto) 0.1 10 ^3/uL (0-0.2); Basophils % (auto) 0.6 % (0.0-2.0); Eosinophils # (auto) 0.2 10 ^3/uL (0-0.8); Eosinophils % (auto) 2.3 % (0.0-7.0); Hematocrit 33.5 % (36.0-46.0); Hemoglobin 11.5 g/dL (12.2-16.2); Lymphocytes # (auto) 1.3 10 ^3/uL (0.4-5.4); Lymphocytes % (auto) 14.4 % (10.0-50.0); Mean Corpuscular Hemoglobin 29.7 pg (28.0-32.0); Mean Corpuscular Hgb Conc. 34.4 g/dL (32.0-36.0); Mean Corpuscular Volume 86.3 fL (80.0-100.0); Monocytes # (auto) 1.4 10 ^3/uL (0-1.3); Monocytes % (auto) 15.7 % (0.0-12.0); Neutrophils # (auto) 5.9 10 ^3/uL (1.6-8.6); Platelet Count (auto) 265 10^3/uL (140-450); Red Blood Cells 3.88 10^6/uL (4.0-5.20); Red Cell Distribution Width 13.9 % (11.8-14.3); White Blood Cell 8.8 10^3/uL (4.4-10.8)
[2024-08-17 07:33] LABS: Alanine Aminotransferase 26 U/L (7-40); Albumin 3.7 g/dL (3.2-4.8); Alkaline Phosphatase 92 U/L (46-116); Anion Gap 7 (5-15); Aspartate Aminotransferase 27 U/L (13-40); Blood Urea Nitrogen 16 mg/dL (9-23); Calcium 9.7 mg/dL (8.7-10.4); Carbon Dioxide 25 mmol/L (20-31); Chloride 104 mmol/L (98-107); Glucose 103 mg/dL (74-106); Potassium 4.1 mmol/L (3.5-5.1); Total Protein 6.8 g/dL (5.7-8.2)
[2024-08-17 07:36] LABS: Bilirubin, Total 0.3 mg/dL (0.2-1.0); Sodium 136 mmol/L (136-145)
[2024-08-17 08:00] VITALS: PULSE 60; RESP 16; O2SAT 100
[2024-08-17 09:00] VITALS: BP 141/62; PULSE 60; RESP 16; TEMP 98.2; O2SAT 100
[2024-08-17] MEDS ORDERED: CIPR500T4 PO (10:22)
[2024-08-17] MEDS ORDERED: AUG875T PO (10:22)
[2024-08-17 11:27] VITALS: BP 141/62; PULSE 60; RESP 16; TEMP 98.2; O2SAT 100
--- NOTE | 2024-08-17 11:42 | DVHDSRES ---
Discharge Summary Date of Admission Resident Creating Document: ARUNA COOLEY RESIDENT Aug 14, 2024 at 17:32 Date of Discharge: Aug 17, 2024 Admitting Diagnosis Bilateral flank pain with nausea, vomiting, dysuria, fever and chills so was found to have sepsis due to acute pyelonephritis Wounds: No wound was present Labs/Diagnostic Data: Laboratory Results Test 08/17/24 06:25 08/15/24 16:19 08/15/24 05:54 08/14/24 13:56 White Blood Count 8.8 10^3/uL (4.4-10.8) Red Blood Count 3.88 10^6/uL (4.0-5.20) Hemoglobin 11.5 g/dL (12.2-16.2) Hematocrit 33.5 % (36.0-46.0) Mean Corpuscular Volume 86.3 fL (80.0-100.0) Mean Corpuscular Hemoglobin 29.7 pg (28.0-32.0) Mean Corpuscular Hemoglobin Concent 34.4 g/dL (32.0-36.0) Red Cell Distribution Width 13.9 % (11.8-14.3) Platelet Count 265 10^3/uL (140-450) Mean Platelet Volume 7.3 fL (6.9-10.8) Neutrophils (%) (Auto) 67.0 % (37.0-80.0) Lymphocytes (%) (Auto) 14.4 % (10.0-50.0) Monocytes (%) (Auto) 15.7 % (0.0-12.0) Eosinophils (%) (Auto) 2.3 % (0.0-7.0) Basophils (%) (Auto) 0.6 % (0.0-2.0) Neutrophils # (Auto) 5.9 10 ^3/uL (1.6-8.6) Lymphocytes # (Auto) 1.3 10 ^3/uL (0.4-5.4) Monocytes # (Auto) 1.4 10 ^3/uL (0-1.3) Eosinophils # (Auto) 0.2 10 ^3/uL (0-0.8) Basophils # (Auto) 0.1 10 ^3/uL (0-0.2) Nucleated Red Blood Cells 0.0 % Sodium Level 136 mmol/L (136-145) Potassium Level 4.1 mmol/L (3.5-5.1) Chloride Level 104 mmol/L (98-107) Carbon Dioxide Level 25 mmol/L (20-31) Anion Gap 7 (5-15) Blood Urea Nitrogen 16 mg/dL (9-23) Creatinine 0.80 mg/dL (0.550-1.02) Glomerular Filtration Rate Calc 76 mL/min (>90) BUN/Creatinine Ratio 20.0 (10.0-20.0) Serum Glucose 103 mg/dL (74-106) Calcium Level 9.7 mg/dL (8.7-10.4) Total Bilirubin 0.3 mg/dL (0.2-1.0) Aspartate Amino Transferase (AST) 27 U/L (13-40) Alanine Aminotransferase (ALT) 26 U/L (7-40) Alkaline Phosphatase 92 U/L (46-116) Total Protein 6.8 g/dL (5.7-8.2) Albumin 3.7 g/dL (3.2-4.8) Lactic Acid Level 0.9 mmol/L (0.4-2.0) Hemoglobin A1c 5.8 % A1C (<5.7) B-Type Natriuretic Peptide 203.00 pg/mL (0-100) Vitamin B12 Level 220 pg/mL (211-911) Vitamin D 25-Hydroxy 26.4 ng/mL (30.0-100) Thyroid Stimulating Hormone (TSH) 1.06 uIU/mL (0.55-4.78) Urine Color Light-yellow (Yellow) Urine Clarity Turbid (Clear) Urine pH 8.0 (5.0-9.0) Urine Specific [place] 1.012 (1.001-1.035) Urine Protein 1+ (Negative) Urine Ketones Negative (Negative) Urine Blood Trace /uL (Negative) Urine Nitrite Negative (Negative) Urine Bilirubin Negative (Negative) Urine Urobilinogen Normal mg/dL (Negative) Urine Leukocyte Esterase 3+ /uL (Negative) Urine RBC 13 /hpf (0 - 4) Urine Microscopic WBC 113 /HPF (0-5) Urine Squamous Epithelial Cells Few /hpf (<5) Urine Transitional Epithelial Cells Few /hpf (<2) Urine Bacteria Few /hpf (None Seen) Urine Yeast (Budding) Few /hpf (None Seen) Urine Glucose Normal mg/dL (Normal) Other Laboratory Tests 08/17/24 06:25 Brief Hx & Hospital Course: This is a 78-year-old female with past medical history of hypertension, dyslipidemia, GERD presented to the ED with a chief complaint of bilateral flank pain with nausea, vomiting, dysuria, fever and chills for last 10 days prior to this admission. According to the patient she mentioned 10 days ago she started having abdominal pain went to the urgent care and prescribed pain medications that helped a bit but she ran out of medication that prompted this visit. Patient reports that pain is sharp colicky pain radiates from loin to groin without any aggravating or relieving factors and associated with nausea, vomiting, dizziness, chills and fever. she also mentioned urgency, frequency and dysuria for the same duration. She denies chest pain,shortness of breath, blurred vision, altered bowel habit, hematuria, recent sick contact or any recent traveling. Hospital course: Patient was initially presented with sepsis with bilateral flank pain and on examination positive CVA tenderness and suprapubic tenderness. CT abdomen pelvis showed Nonspecific, nondilated fluid-filled small bowel loops possible ileus or enteritis and mild bilateral perinephric stranding possible infectious/ inflammatory etiology. No hydronephrosis and no renal or ureteral calculi. U/A was consistent with UTI and urine culture showed mixed johny. was treated with IV NS bolus, IV ceftriaxone 2 g daily, acetaminophen 650 mg q.6 p.r.n. and resumed home medications for control of blood pressure and dyslipidemia. Today during morning round patient mentioned feeling better, resolution of bilateral flank pain, and no temperature in last 24 hours and able to tolerate p.o. without any nausea or vomiting. Discharge plan was discussed with the patient and all questions were answered. Patient is being discharged to home with Augmentin 875 mg b.i.d. and ciprofloxacin 500 mg b.i.d. for 7 days and advised to follow up with DC clinic in 1 week. Physical examination on the day of discharge: General Appearance: Alert, Oriented X3, Cooperative, No acute distress HEENT: Atraumatic, PERRLA, EOMI, Mucous membrane moist/pink Respiratory: Clear to auscultation, Normal air movement Cardiovascular: Regular rate, Normal S1, Normal S2, No murmurs, no chest wall tenderness Abdominal: Normal bowel sounds, Soft, No tenderness (resolved CVA tenderness), No hepatosplenomegaly, No masses Extremities: No clubbing, No cyanosis, No edema, Normal pulses, No tenderness/swelling Skin: No rashes, No breakdown, No significant lesion Neuro: Normal gait, Normal speech, Strength at 5/5 X4 ext, Normal tone, Sensation intact, Cranial nerves 3-12 NL, Reflexes 2+ Psych/Mental Status: Mental status NL, Mood NL Discussed with Dr. Carroll Consults/Reason for consult No Consultation was done Operations or Procedures CT abdomen and Pelvis : FINDINGS: Lung bases: Atelectasis in the lung bases. Liver: Grossly unremarkable in its noncontrast enhanced appearance. No abnormal density or focal lesion identified. Biliary: No calcified gallstones or biliary ductal dilatation. Spleen: Unremarkable. Pancreas: Grossly unremarkable in its noncontrast enhanced appearance. Adrenal glands: Unremarkable. No mass. Kidneys: Mild bilateral perinephric stranding. No hydronephrosis. No renal or ureteral calculi Aorta/Vascular: Scattered moderate atherosclerotic calcification. No abdominal aortic aneurysm. Retroperitoneum: No mass or lymphadenopathy. Bowel/mesentery: Nonspecific nondilated fluid-filled small bowel loops. No small bowel obstruction. Appendix is visualized and appears unremarkable. Pelvic organs: Grossly unremarkable. Bladder: Unremarkable. No mass. Abdominal wall: No mass or hernia. Bones: No acute fracture or suspicious intraosseous lesion. IMPRESSION: 1. Nonspecific nondilated fluid-filled small bowel loops. Findings may be seen with ileus or enteritis in the appropriate clinical setting. No small bowel obstruction. 2. Mild bilateral perinephric stranding is nonspecific may be chronic. Correlate with clinical findings and urinalysis to exclude infectious / inflammatory etiology. No hydronephrosis and no renal or ureteral calculi. 3. Additional findings as described above CHEST RADIOGRAPH Indication: hypoxia Technique: Single frontal view of the chest was obtained Comparison: None FINDINGS: Lines and Tubes: None Lungs: No focal consolidation. Pleura: No effusion. No pneumothorax. Cardiomediastinal contours: Unremarkable Bones: No acute osseous abnormality. IMPRESSION: 1. No acute cardiopulmonary disease. Condition at Discharge: Stable Final Diagnosis/Problems List # Acute pyelonephritis # Sepsis with leukocytosis due to above # Acute complicated UTI # Possible JUDITH likely due to vasomotor neuropathy # Hypertensive heart disease # Dyslipidemia Discharge Disposition: Home Discharge Instruct/Medications Diet: Cardiac 2g Na,low cholest Activity: No Restrictions, As Tolerated Follow Up/Referral: Follow up with DC clinic in 1 week. To follow up with the primary care provider within 1 to 2 weeks. Medications: Augmentin 875 mg bid for 7 days. Ciprofloxacin 500 mg bid for 7 days. Discharge Statement: "Patient was advised to return to the ER or call 911 if any headaches, dizziness, shortness of breath, chest pain, abdominal pain, bleeding, fevers, or worsening of medical condition. Patient was counseled about treatment plan, medications, possible side effects, patientverbalized understanding. All questions were answered to the best of my ability. This discharge took greater then 30 minutes in planning, reviewing documentation, counseling the patient, and discussing with other team members." ASSESSMENT ASSESSMENT Assessment # Acute pyelonephritis # Sepsis with leukocytosis due to above # Acute complicated UTI # Possible JUDITH likely due to vasomotor neuropathy # Hypertensive heart disease # Dyslipidemia Addendum Addendum Addendum I was physically present for the wilson portions of the service provided to patient by THE RESIDENT. I have reviewed the documentation, discussed the case with resident and agree with the resident's documentation except as noted. Also the patient's clinical case was discussed with the patient's nurse. This medical document was created using an electronic medical record system with computerized dictation system. Although this document has been carefully reviewed, there might still be some phonetic and typographical errors. These areas are purely typographical due to imperfections of the software programs, and do not reflect any compromise in the patient's medical care. Late signature. Date of Service: Aug 17, 2024 Billing Provider: OK CARROLL MD Common Visit Codes: 27632-YBJ/OBS DISCH DAY >30min ARUNA COOLEY RESIDENT Aug 17, 2024 11:42 OK CARROLL MD August 18, 2024 07:20
[2024-08-17 13:00] VITALS: BP 161/50; PULSE 62; RESP 16; TEMP 97.9; O2SAT 96
== END 2024-08-17 15:45 | disposition home or self-care (01) | DRG 871 ==
LOC: ER 13:22 → OVERFLOW 17:32 → CENTRAL 08-15 17:08
PROVIDERS: ADMIT Internal Medicine; ATTEND Internal Medicine
DX: A41.9 Sepsis, unspecified organism (principal); N17.0 Acute kidney failure with tubular necrosis; N10 Acute pyelonephritis; K56.7 Ileus, unspecified; K52.9 Noninfective gastroenteritis and colitis, unspecified; E78.5 Hyperlipidemia, unspecified; I11.9 Hypertensive heart disease without heart failure; K21.9 Gastro-esophageal reflux disease without esophagitis; Z91.014 Allergy to mammalian meats; Z79.899 Other long term (current) drug therapy
CPT/HCPCS: 36415; 71045; 74176; 80053; 81001; 82306; 82607; 83036; 83605; 83880; 84443; 85025; 87086; 96361; 96374; 96375; G0378; J1956; J2405

== ENCOUNTER 2025-02-22 09:14 | Outpatient (CLI) | payer OTHER ==
[~2025-02-22 09:14] MED LIST changes: +AUG875T PO; +CIPR500T4 PO
[2025-02-22 10:19] LABS: Hematocrit 38.8 % (36.0-46.0); Hemoglobin 13.0 g/dL (12.2-16.2); Mean Corpuscular Hemoglobin 30.2 pg (28.0-32.0); Mean Corpuscular Volume 89.8 fL (80.0-100.0); Nucleated Red Blood Cells % 0.0 %
[2025-02-22 10:44] LABS: Alanine Aminotransferase 19 U/L (7-40); Anion Gap 10 (5-15); BUN/Creatinine Ratio 18.2 (10.0-20.0); Blood Urea Nitrogen 16 mg/dL (9-23); Calcium 9.9 mg/dL (8.7-10.4); Carbon Dioxide 25 mmol/L (20-31); Chloride 106 mmol/L (98-107); Glucose 99 mg/dL (74-106); Potassium 4.3 mmol/L (3.5-5.1); Sodium 141 mmol/L (136-145); Total Protein 7.7 g/dL (5.7-8.2)
[2025-02-22 10:45] LABS: Albumin 4.3 g/dL (3.2-4.8); Bilirubin, Total 0.5 mg/dL (0.2-1.0)
[2025-02-22 10:48] LABS: Alkaline Phosphatase 132 U/L (46-116)
[2025-02-22 10:54] LABS: Urine Protein, UAD Negative (Negative)
== END 2025-02-22 17:00 | disposition home or self-care (01) ==
LOC: LAB 09:14
PROVIDERS: ATTEND Student in an Organized Health Care Education/Training Program
DX: I10 Essential (primary) hypertension (principal); N39.0 Urinary tract infection, site not specified
CPT/HCPCS: 36415; 80053; 81001; 85025; 87086